=== PATIENT | female | born 2005 | race Caucasian/White ===

== ENCOUNTER 2025-05-02 11:14 | Emergency (ER) | payer BC, SELFPAY ==
[2025-05-02 11:36] VITALS: BP 102/71; PULSE 76; RESP 16; TEMP 36.5; O2SAT 98
--- NOTE | 2025-05-02 12:06 | ED.URI ---
HPI - URI/Sore Throat General Chief Complaint: Upper Respiratory Infection Stated Complaint: Sore Throat/Fever/Vomiting Time Seen by Provider: 05/02/25 12:06 History of Present Illness HPI Narrative: 20-year-old female presented for complaint of sore throat, runny nose and cough. Onset 3 days. Endorses vomiting with body aches and chills last night. Denies shortness of breath, wheezing or lethargy. Taking Mucinex for symptoms. Related Data Home Medications ?Medication ?Instructions ?Recorded ?Confirmed ?Last Taken ?Type escitalopram oxalate 5 mg tablet mg PO 11/21/24 11/21/24 Unknown History Allergies Allergy/AdvReac Type Severity Reaction Status Date / Time amoxicillin Allergy Severe Hives Verified 11/21/24 16:52 sulfamethoxazole (From Allergy Severe Hives Verified 11/21/24 16:52 Septra) trimethoprim (From ) Allergy Severe Hives Verified 11/21/24 16:52 ofloxacin ophthalmic i Allergy Severe Hives Uncoded 11/21/24 16:52 Review of Systems Review of Systems: per [facility] Surgical History Surgical History H/O removal of cyst behind ear Family History Family History Other Acute myocardial infarction Thyroid disease Social History Social History Smoking status: Never smoker Alcohol intake: current Substance use: current Substance use type: marijuana Lack of Transportation: No Lack of Food: Never True Current Housing: I Have Housing Concerned About Future Housing: No Difficulty Paying Gas/Electric Bills: No Difficulty Paying for Meds: No Currently Unemployed: No Living arrangements: with roommate(s) Occupation/Education: student Additional occupation/education comments: [employer] Gender identity (if verbalized by the patient): Female Sexual Orientation (if Verbalized by the Patient): Straight or Heterosexual Exam Narrative: GENERAL: mildly Ill-appearing, no acute distress. EYES: conjunctivae clear ENT: Mucous membranes moist. TM pearly lopez with normal light reflex bilaterally; no tragal tenderness. Oropharynx erythematous without lesions. Tonsils not enlarged and without exudate. No drooling, no hoarseness, no trismus, uvula midline. No tripod positioning, hot potato voice, or soft palate swelling. NECK: Supple. No lymphadenopathy CHEST: Clear to auscultation, breath sounds equal. No respiratory distress, speaks in full sentences. HEART: Regular rate and rhythm. No murmur heard. SKIN: Warm, dry, no rash. NEURO: Alert and oriented x3. Course Course Level of Care: Express Care Visit Vital Signs Vital signs: Vital Signs Temperature 97.7 F 05/02/25 11:36 Pulse Rate 76 05/02/25 11:36 Respiratory Rate 16 05/02/25 11:36 Blood Pressure 102/71 05/02/25 11:36 Pulse Oximetry 98 05/02/25 11:36 Oxygen Delivery Room Air 05/02/25 11:36 Temperature 97.7 F 05/02/25 11:36 Pulse Rate 76 05/02/25 11:36 Respiratory Rate 16 05/02/25 11:36 Blood Pressure 102/71 05/02/25 11:36 Pulse Oximetry 98 05/02/25 11:36 Oxygen Delivery Room Air 05/02/25 11:36 MDM MDM Narrative Medical decision making narrative: Flu, COVID, strep negative. Discussed physical exam findings. Advised supportive measures and signs/symptoms to go to the ER. Pt is appropriate for outpt treatment and f/u. Differential Diagnosis Differential Diagnosis: Influenza, covid, sinusitis, OM, strep pharyngitis, URI Discharge Plan Discharge Clinical Impression: Upper respiratory infection Patient Disposition: Home Condition: Stable Instructions: Antibiotic Form, Upper Respiratory Infection (ED) Additional Instructions: Rapid strep swab was negative today You will be notified in a few days if the culture comes back positive for strep, and appropriate antibiotics will be called in at that time. if symptoms are due to a viral illness, it is not treated with antibiotics. Viral symptoms can be present for up to 10-14 days. Recommendations: Flonase spray and Zyrtec for sinus congestion Cough syrup may cause drowsiness; avoid driving or take it at night time. Tylenol every 8 hours as needed for pain/fever Soft foods, cool liquids, warm tea. Gargle with warm saltwater twice a day. Chloraseptic spray and throat lozenges. Rest and stay hydrated. --Follow up with your PCP --Go to the ER immediately if you cannot swallow your saliva, trouble breathing/wheezing, throat swelling, pain is persistent and severe Patient Language: Faroese Prescriptions: No Action escitalopram oxalate 5 mg tablet PO Follow-up/Referrals: PHYSICIAN,FURNITURE UPHOLSTERER [Primary Care Provider, Internal Medicine] Time of Disposition: 12:14
[2025-05-02 12:52] LABS: EDCOVIDSCREEN Negative (Negative); EDINFLUASCREEN Negative (Negative); EDINFLUBSCREEN Negative (Negative); EDSTREPNEGPOS1 Negative (Negative)
== END 2025-05-02 12:19 | disposition home or self-care (01) ==
PROVIDERS: Emergency Provider Nurse Practitioner Family
DX: J06.9 Acute upper respiratory infection, unspecified (principal); F12.90 Cannabis use, unspecified, uncomplicated
CPT/HCPCS: 87081; 87426; 87804; 87880; 99213; G0463